=== PATIENT | male | born 1960 | race Caucasian/White ===

== ENCOUNTER 2023-02-02 09:11 | Day surgery (SDC) | payer OTHER ==
[2023-02-01 10:31] LABS: COVID AG,FIA SOURCE NASAL SWAB
[~2023-02-02] VITALS: Ht 175.3 cm; Wt 100.5 kg
[~2023-02-02 09:11] MED LIST: SODIUM CHLORIDE 0.9% 1,000 ML IV ONE
[2023-02-02] MEDS ORDERED: PROPOFOL 1% 20 ML VIAL IVP ONE (09:12)
[2023-02-02] MEDS ORDERED: METO25TA6 PO (09:24)
[2023-02-02] MEDS ORDERED: GABA-1181 PO (09:26)
[2023-02-02] MEDS ORDERED: AMLO5TAB66 PO (09:26)
[2023-02-02] MEDS ORDERED: ASPI-1444 PO (09:27)
[2023-02-02] MEDS ORDERED: BACL10TA PO (09:31)
[2023-02-02] MEDS ORDERED: ATOR40TA71 PO (09:33)
[2023-02-02] MEDS ORDERED: FOLI0.4T14 PO (09:34)
== END 2023-02-02 12:45 | disposition home or self-care (01) ==
LOC: SURGERY 09:11
PROVIDERS: ATTEND Internal Medicine Gastroenterology
DX: Z12.11 Encounter for screening for malignant neoplasm of colon (principal); K63.5 Polyp of colon; K62.1 Rectal polyp; I69.351 Hemiplegia and hemiparesis following cerebral infarction affecting right dominant side; K64.0 First degree hemorrhoids; E78.5 Hyperlipidemia, unspecified; I10 Essential (primary) hypertension; E78.00 Pure hypercholesterolemia, unspecified; K57.30 Diverticulosis of large intestine without perforation or abscess without bleeding; Z79.899 Other long term (current) drug therapy; Z20.822 Contact with and (suspected) exposure to COVID-19; Z87.891 Personal history of nicotine dependence; Z98.890 Other specified postprocedural states
CPT/HCPCS: 87426; 45385; 45380; 93005; C9803; C1769; J2704; 88305